=== PATIENT | female | born 1955 | race Caucasian/White ===

== ENCOUNTER 2020-03-25 10:48 | Outpatient (CLI) | payer MEDICARE, BC ==
--- NOTE | 2020-04-22 09:43 | MMO ---
Bilateral MAMMO Bilat Screen [facility]. CLINICAL HISTORY: Patient is 65 years old and is seen for screening. The patient has the following family history of breast cancer: paternal grandmother, malignant (generic). The patient has no personal history of cancer. VIEWS: The views performed were: bilateral craniocaudal with tomosynthesis and bilateral mediolateral oblique with tomosynthesis. This study has been interpreted with the assistance of computer-aided detection. MAMMOGRAM FINDINGS: There are scattered fibroglandular densities. Finding 1: There are benign appearing calcifications seen in both breasts. Finding 2: There are amorphous or indistinct calcifications measuring 10 millimeters with grouped or clustered distribution seen in the upper-outer region of the left breast. IMPRESSION: FINDING 1: BENIGN APPEARING CALCIFICATIONS IN BOTH BREASTS ARE BENIGN. FINDING 2: AMORPHOUS OR INDISTINCT CALCIFICATIONS IN THE LEFT BREAST REQUIRE ADDITIONAL EVALUATION. ADDITIONAL PROJECTIONS (LEFT CRANIOCAUDAL SPOT COMPRESSION MAGNIFICATION; LEFT MEDIOLATERAL OBLIQUE SPOT COMPRESSION MAGNIFICATION; LEFT MEDIOLATERAL; AND LEFT MEDIOLATERAL SPOT COMPRESSION MAGNIFICATION) ARE RECOMMENDED. THE RESULTS OF THIS EXAM WERE SENT TO THE PATIENT. ACR BI-RADS Category 0 - Incomplete: Need additional imaging evaluation. [facility] will notify the patient of the need for additional imaging services. MAMMOGRAPHY NOTE: 1. A negative mammogram report should not delay a biopsy if a dominant of clinically suspicious mass is present. 2. Approximately 10% to 15% of breast cancers are not detected by mammography. 3. Adenosis and dense breasts may obscure an underlying neoplasm. Reported by: AUTUMN KIM MD Electonically Signed: [id number]
== END 2020-03-25 10:49 | disposition home or self-care (01) ==
LOC: BICMAMMO 10:48
PROVIDERS: ATTEND Family Medicine
DX: Z12.31 Encounter for screening mammogram for malignant neoplasm of breast (principal); R92.1 Mammographic calcification found on diagnostic imaging of breast
CPT/HCPCS: 77063; 77067

== ENCOUNTER 2020-06-25 09:06 | Outpatient (CLI) | payer MEDICARE, BC | END 2020-06-25 09:07 | disposition home or self-care (01) | LOC: BICMAMMO 09:06 | PROVIDERS: ATTEND Family Medicine | DX: R92.1 Mammographic calcification found on diagnostic imaging of breast (principal) | CPT/HCPCS: 77065; G0279 ==

== ENCOUNTER → 2020-08-11 | Day surgery (SDC) | payer MEDICARE, BC | LOC: MAMMO 07:04 | PROVIDERS: ATTEND Family Medicine | PROC: 0H9U3ZX Drainage of Left Breast, Percutaneous Approach, Diagnostic (ICD-10-PCS; principal; 2020-08-11) | DX: D05.12 Intraductal carcinoma in situ of left breast (principal); N60.22 Fibroadenosis of left breast | CPT/HCPCS: 19081; 76098; 88305; 88341; 88342 ==

== ENCOUNTER 2020-10-22 06:30 | Day surgery (SDC) | payer MEDICARE, BC ==
[2020-10-20 14:25] VITALS: BMI 29.5
[2020-10-22] MEDS ORDERED: Fentanyl 100 MCG/2 ML VIAL ONE (06:45)
[2020-10-22] MEDS ORDERED: Lidocaine 1% w/Epinephrine 1:100K 30 ML VIAL ONE (06:59)
[2020-10-22] MEDS ORDERED: Isosulfan Blue 50 MG/5 ML VIAL ONE (06:59)
[2020-10-22] MEDS ORDERED: Bupivacaine 0.25% HCL 30 ML VIAL ONE (06:59)
[2020-10-22] MEDS ORDERED: Ketorolac Tromethamine 30 MG/ML VIAL ONE (08:24)
[2020-10-22] MEDS ORDERED: PHENYLEPHRINE-NS 100 MCG/ML 10 ML SYRINGE ONE (08:24)
[2020-10-22] MEDS ORDERED: Dexamethasone 20 MG/5 ML VIAL ONE (08:24)
[2020-10-22] MEDS ORDERED: Lidocaine 1% PF 5 ML VIAL ONE (08:24)
[2020-10-22] MEDS ORDERED: PROPOFOL 200 MG/20 ML VIAL ONE (08:24)
[2020-10-22] MEDS ORDERED: Acetaminophen 500 MG TAB ONE (08:24)
[2020-10-22] MEDS ORDERED: Ondansetron PF 4 MG/2 ML Vial ONE (08:24)
== END 2020-10-22 11:30 | disposition home or self-care (01) ==
LOC: SDC 06:30
PROVIDERS: ATTEND Surgery
PROC: 0HBU0ZZ Excision of Left Breast, Open Approach (ICD-10-PCS; principal; 2020-10-22)
DX: N60.92 Unspecified benign mammary dysplasia of left breast (principal); E11.9 Type 2 diabetes mellitus without complications; I10 Essential (primary) hypertension; E03.9 Hypothyroidism, unspecified; E78.5 Hyperlipidemia, unspecified; Z87.891 Personal history of nicotine dependence; Z80.3 Family history of malignant neoplasm of breast; Z79.84 Long term (current) use of oral hypoglycemic drugs; Z79.899 Other long term (current) drug therapy; Z88.2 Allergy status to sulfonamides
CPT/HCPCS: 19281; 76098; 88307; J0690; J1100; J1885; J2405; J2704; J3010; Q9968; S0020

== ENCOUNTER 2020-12-22 13:58 | Outpatient (CLI) | payer MEDICARE, BC | END 2020-12-22 13:59 | disposition home or self-care (01) | LOC: BICMAMMO 13:58 | PROVIDERS: ATTEND Internal Medicine Hematology & Oncology | DX: Z13.820 Encounter for screening for osteoporosis (principal); C50.412 Malignant neoplasm of upper-outer quadrant of left female breast; T38.6X5A Adverse effect of antigonadotrophins, antiestrogens, antiandrogens, not elsewhere classified, initial encounter; Z78.0 Asymptomatic menopausal state | CPT/HCPCS: 77080 ==

== ENCOUNTER 2021-04-04 10:01 | Outpatient (CLI) | payer MEDICARE, BC | END 2021-04-04 10:02 | disposition home or self-care (01) | LOC: BICMAMMO 10:01 | PROVIDERS: ATTEND Surgery | DX: D05.12 Intraductal carcinoma in situ of left breast (principal) | CPT/HCPCS: 77066; G0279 ==

== ENCOUNTER 2021-08-04 10:08 | Outpatient (CLI) | payer MEDICARE, BC | END 2021-08-04 10:09 | disposition home or self-care (01) | LOC: BICULT 10:08 | PROVIDERS: ATTEND Family Medicine | DX: Z12.2 Encounter for screening for malignant neoplasm of respiratory organs (principal); R10.11 Right upper quadrant pain; R59.0 Localized enlarged lymph nodes; Z87.891 Personal history of nicotine dependence | CPT/HCPCS: 71271; 76705 ==

== ENCOUNTER 2021-10-17 14:02 | Outpatient (CLI) | payer MEDICARE, BC ==
[~2021-10-17 14:02] MED LIST: Iopamidol-370 76% 500 ML 1 ML ONE
== END 2021-10-17 14:03 | disposition home or self-care (01) ==
LOC: BICCT 14:02
PROVIDERS: ATTEND Otolaryngology Plastic Surgery within the Head & Neck
DX: Z08 Encounter for follow-up examination after completed treatment for malignant neoplasm (principal); R59.1 Generalized enlarged lymph nodes; Z85.3 Personal history of malignant neoplasm of breast
CPT/HCPCS: 70491; 71260; 82565; Q9967

== ENCOUNTER 2021-10-27 12:17 | Outpatient (CLI) | payer MEDICARE, BC | END 2021-10-27 12:18 | disposition home or self-care (01) | LOC: LABBT 12:17 | PROVIDERS: ATTEND Internal Medicine Gastroenterology | DX: K21.9 Gastro-esophageal reflux disease without esophagitis (principal); R13.10 Dysphagia, unspecified; Z20.822 Contact with and (suspected) exposure to COVID-19 | CPT/HCPCS: 87811 ==

== ENCOUNTER 2021-11-01 06:23 | Day surgery (SDC) | payer MEDICARE, BC ==
[2021-10-28 14:30] VITALS: BMI 29.7
[2021-11-01] MEDS ORDERED: PROPOFOL 200 MG/20 ML VIAL ONE (08:08)
[2021-11-01] MEDS ORDERED: Lidocaine 1% MPF 2 ML VIAL ONE (08:08)
== END 2021-11-01 09:12 | disposition home or self-care (01) ==
LOC: SDC 06:23
PROVIDERS: ATTEND Internal Medicine Gastroenterology
PROC: 0DB68ZX Excision of Stomach, Via Natural or Artificial Opening Endoscopic, Diagnostic (ICD-10-PCS; principal; 2021-11-01)
PROC: 0D757ZZ Dilation of Esophagus, Via Natural or Artificial Opening (ICD-10-PCS; 2021-11-01)
DX: K29.50 Unspecified chronic gastritis without bleeding (principal); K31.89 Other diseases of stomach and duodenum; R13.10 Dysphagia, unspecified; K21.9 Gastro-esophageal reflux disease without esophagitis; I10 Essential (primary) hypertension; M19.90 Unspecified osteoarthritis, unspecified site; E11.9 Type 2 diabetes mellitus without complications; E78.5 Hyperlipidemia, unspecified; E03.9 Hypothyroidism, unspecified; G47.00 Insomnia, unspecified; Z79.84 Long term (current) use of oral hypoglycemic drugs; Z79.890 Hormone replacement therapy; Z79.899 Other long term (current) drug therapy; Z88.2 Allergy status to sulfonamides
CPT/HCPCS: 88305; 88342; J2704

== ENCOUNTER 2021-11-25 09:25 | Outpatient (CLI) | payer MEDICARE, BC ==
[2021-11-25 11:30] LABS: Hemoglobin 11.6 g/dL (12.0-15.5)
[2021-11-25 12:02] LABS: Anion Gap 18 mmol/L (10-20); BUN (Urea Nitrogen) 17 mg/dL (9.8-20.1); Calc. Creatinine Clearance 0 mL/min (70-130); Calcium 8.7 mg/dL (7.8-10.44); Carbon Dioxide 23 mmol/L (23-31); Chloride 105 mmol/L (98-107); Estimated GFR 77; Glucose 119 mg/dL (80-115); Potassium 4.3 mmol/L (3.5-5.1); Sodium 142 mmol/L (136-145)
== END 2021-11-25 09:26 | disposition home or self-care (01) ==
LOC: LABBT 09:25
PROVIDERS: ATTEND Otolaryngology Plastic Surgery within the Head & Neck
DX: Z01.818 Encounter for other preprocedural examination (principal); Z20.822 Contact with and (suspected) exposure to COVID-19
CPT/HCPCS: 80048; 85014; 85018; 87811; 93005; 93010

== ENCOUNTER 2021-11-30 06:41 | Day surgery (SDC) | payer MEDICARE, BC ==
[2021-11-29 10:26] VITALS: BMI 29.7
[2021-11-30] MEDS ORDERED: fentaNYL Citrate/PF 100 MCG/2 ML SYRINGE ONE (07:16)
[2021-11-30] MEDS ORDERED: EPINEPHrine 1 MG/ML AMP ONE (07:53)
[2021-11-30] MEDS ORDERED: PROPOFOL 40 ML ONE (07:59)
[2021-11-30] MEDS ORDERED: Dexamethasone 20 MG/5 ML VIAL ONE (08:06)
[2021-11-30] MEDS ORDERED: PROPOFOL 200 MG/20 ML VIAL ONE (08:06)
[2021-11-30] MEDS ORDERED: Ondansetron PF 4 MG/2 ML Vial ONE (08:06)
[2021-11-30] MEDS ORDERED: HYDROcodone/Acetaminophen 5/325 mg Tablet ONE (09:47)
== END 2021-11-30 09:40 | disposition home or self-care (01) ==
LOC: SDC 06:41
PROVIDERS: ATTEND Otolaryngology Plastic Surgery within the Head & Neck
PROC: 3E0F8GC Introduction of Other Therapeutic Substance into Respiratory Tract, Via Natural or Artificial Opening Endoscopic (ICD-10-PCS; principal; 2021-11-30)
DX: J38.01 Paralysis of vocal cords and larynx, unilateral (principal); E11.9 Type 2 diabetes mellitus without complications; E03.9 Hypothyroidism, unspecified; E78.5 Hyperlipidemia, unspecified; Z85.3 Personal history of malignant neoplasm of breast; Z87.891 Personal history of nicotine dependence; Z92.3 Personal history of irradiation; Z79.811 Long term (current) use of aromatase inhibitors; Z79.84 Long term (current) use of oral hypoglycemic drugs; Z79.899 Other long term (current) drug therapy; Z88.2 Allergy status to sulfonamides
CPT/HCPCS: 31571; C1776; J0171; J1100; J2405; J2704

== ENCOUNTER 2021-12-12 06:11 | Day surgery (SDC) | payer MEDICARE, BC ==
[2021-12-12] MEDS ORDERED: fentaNYL Citrate/PF 100 MCG/2 ML SYRINGE ONE (06:45)
[2021-12-12] MEDS ORDERED: Phenylephrine 10 MG/ML VIAL ONE (06:45)
[2021-12-12] MEDS ORDERED: Bupivacaine 0.25% HCL 30 ML VIAL ONE (06:50)
[2021-12-12] MEDS ORDERED: EPINEPHrine 1 MG/ML AMP ONE (06:50)
[2021-12-12] MEDS ORDERED: Ondansetron PF 4 MG/2 ML Vial ONE (07:28)
[2021-12-12] MEDS ORDERED: Dexamethasone 20 MG/5 ML VIAL ONE (07:28)
[2021-12-12] MEDS ORDERED: PROPOFOL 200 MG/20 ML VIAL ONE (07:28)
[2021-12-12] MEDS ORDERED: Glycopyrrolate 0.2 MG/ML 5 ML SYRINGE ONE (07:28)
[2021-12-12] MEDS ORDERED: PHENYLEPHRINE-NS 100 MCG/ML 10 ML SYRINGE ONE (07:28)
[2021-12-12] MEDS ORDERED: NEOSTIGMINE 3 MG/3 ML SYR 3 MG/3 ML SYRINGE ONE (07:28)
[2021-12-12] MEDS ORDERED: Rocuronium Bromide 10 MG/ML (10ML VIAL) ONE (07:28)
[2021-12-12] MEDS ORDERED: HYDROcodone/Acetaminophen 5/325 mg Tablet PO PRN (08:34)
[2021-12-12] MEDS ORDERED: SUGAMMADEX SODIUM 200 MG/2 ML VIAL ONE (08:40)
[2021-12-12] MEDS ORDERED: Fentanyl 100 MCG/2 ML VIAL ONE (09:09)
[2021-12-12 11:26] VITALS: BMI 31.3
== END 2021-12-12 13:29 | disposition home or self-care (01) ==
LOC: SDC 06:11
PROVIDERS: ATTEND Thoracic Surgery (Cardiothoracic Vascular Surgery)
PROC: 07B70ZX Excision of Thorax Lymphatic, Open Approach, Diagnostic (ICD-10-PCS; principal; 2021-12-12)
DX: C96.9 Malignant neoplasm of lymphoid, hematopoietic and related tissue, unspecified (principal); E11.9 Type 2 diabetes mellitus without complications; E03.9 Hypothyroidism, unspecified; E78.5 Hyperlipidemia, unspecified; K21.9 Gastro-esophageal reflux disease without esophagitis; F17.290 Nicotine dependence, other tobacco product, uncomplicated; Z85.3 Personal history of malignant neoplasm of breast; Z79.811 Long term (current) use of aromatase inhibitors; Z79.84 Long term (current) use of oral hypoglycemic drugs; Z79.899 Other long term (current) drug therapy; Z88.2 Allergy status to sulfonamides
CPT/HCPCS: 38500; C1776; 88305; 88341; 88342; J0171; J1100; J2370; J2405; J2704; J3010; S0020

== ENCOUNTER 2022-01-05 10:25 | Outpatient (CLI) | payer MEDICARE, BC ==
[2022-01-05 13:16] LABS: #Monocytes 0.4 10x3/uL (0.0-1.1); #Neutrophils 3.6 10x3/uL (1.5-8.4); %Basophils 0.6 % (0.0-2.0); %Eosinophils 0.4 % (0.0-6.0); %Lymphocytes 19.8 % (18.0-47.0); %Monocytes 8.1 % (0.0-10.0); %Neutrophils 70.3 % (40.0-75.0); Hemoglobin 11.2 g/dL (12.0-15.5); Mean Corpuscular HGB CONC 32.4 g/dL (32.0-36.0); Mean Corpuscular Hemoglobin 28.7 pg (27.0-33.0); Mean Corpuscular Volume 88.7 fl (81.6-98.3); Mean Platelet Volume 10.6 fl (7.4-10.4); Platelet Count 197 10x3/uL (150-450); RBC Distribution Width 14.7 % (11.5-14.5); White Blood Cell (WBC) Count 5.2 10x3/uL (3.5-10.5)
[2022-01-05 14:01] LABS: Anion Gap 16 mmol/L (10-20); BUN (Urea Nitrogen) 12 mg/dL (9.8-20.1); Calc. Creatinine Clearance 0 mL/min (70-130); Calcium 8.8 mg/dL (7.8-10.44); Carbon Dioxide 26 mmol/L (23-31); Chloride 105 mmol/L (98-107); Estimated GFR 77; Glucose 101 mg/dL (80-115); Potassium 4.5 mmol/L (3.5-5.1); Sodium 142 mmol/L (136-145)
== END 2022-01-05 10:26 | disposition home or self-care (01) ==
LOC: LABBT 10:25
PROVIDERS: ATTEND Surgery
DX: Z01.818 Encounter for other preprocedural examination (principal); C50.919 Malignant neoplasm of unspecified site of unspecified female breast
CPT/HCPCS: 71046; 80048; 85025; 93005; 93010

== ENCOUNTER 2022-01-10 11:28 | Outpatient (CLI) | payer MEDICARE, BC | END 2022-01-10 11:29 | disposition home or self-care (01) | LOC: SCSMRI 11:28 | PROVIDERS: ATTEND Internal Medicine Hematology & Oncology | DX: C34.02 Malignant neoplasm of left main bronchus (principal); I72.5 Aneurysm of other precerebral arteries | CPT/HCPCS: 70553 ==

== ENCOUNTER 2022-04-10 10:28 | Outpatient (CLI) | payer MEDICARE | END 2022-04-10 10:29 | disposition home or self-care (01) | LOC: BICMAMMO 10:28 | PROVIDERS: ATTEND Specialist | DX: Z08 Encounter for follow-up examination after completed treatment for malignant neoplasm (principal); Z85.3 Personal history of malignant neoplasm of breast | CPT/HCPCS: 77066; G0279 ==

== ENCOUNTER 2022-04-18 12:35 | Outpatient (CLI) | payer MEDICARE | END 2022-04-18 12:36 | disposition home or self-care (01) | LOC: SCSMRI 12:35 | PROVIDERS: ATTEND Internal Medicine Hematology & Oncology | DX: C34.02 Malignant neoplasm of left main bronchus (principal); C50.412 Malignant neoplasm of upper-outer quadrant of left female breast; I67.1 Cerebral aneurysm, nonruptured; E11.9 Type 2 diabetes mellitus without complications; Z96.652 Presence of left artificial knee joint | CPT/HCPCS: 70553; 78815; A9552 ==

== ENCOUNTER 2022-10-06 12:32 | Outpatient (CLI) | payer MEDICARE | END 2022-10-06 12:33 | disposition home or self-care (01) | LOC: PET 12:32 → SCSMRI 12:33 | PROVIDERS: ATTEND Internal Medicine Hematology & Oncology | DX: C34.02 Malignant neoplasm of left main bronchus (principal); C50.412 Malignant neoplasm of upper-outer quadrant of left female breast; I67.1 Cerebral aneurysm, nonruptured | CPT/HCPCS: 70553; 78815; A9552 ==

== ENCOUNTER 2022-11-03 13:13 | Outpatient (CLI) | payer BC, MEDICARE | END 2022-11-03 13:14 | disposition home or self-care (01) | LOC: BICMAMMO 13:13 | PROVIDERS: ATTEND Internal Medicine Hematology & Oncology | DX: Z13.820 Encounter for screening for osteoporosis (principal); C34.02 Malignant neoplasm of left main bronchus; Z78.0 Asymptomatic menopausal state | CPT/HCPCS: 77080 ==

== ENCOUNTER 2022-12-29 08:00 | Outpatient (CLI) | payer MEDICARE | END 2022-12-29 08:01 | LOC: PET 08:00 | PROVIDERS: ATTEND Internal Medicine Hematology & Oncology | DX: C34.02 Malignant neoplasm of left main bronchus (principal); C76.0 Malignant neoplasm of head, face and neck; R94.8 Abnormal results of function studies of other organs and systems | CPT/HCPCS: 78815; A9552 ==

== ENCOUNTER 2023-04-06 10:15 | Outpatient (CLI) | payer MEDICARE | END 2023-04-06 10:16 | disposition home or self-care (01) | LOC: PET 10:15 | PROVIDERS: ATTEND Internal Medicine Hematology & Oncology | DX: C34.02 Malignant neoplasm of left main bronchus (principal); C76.0 Malignant neoplasm of head, face and neck; C50.412 Malignant neoplasm of upper-outer quadrant of left female breast; R59.0 Localized enlarged lymph nodes | CPT/HCPCS: 78815; A9552 ==

== ENCOUNTER 2023-08-01 12:04 | Day surgery (SDC) | payer MEDICARE ==
[2023-08-01] MEDS ORDERED: Acetaminophen 500 MG TAB ONE (12:47)
[2023-08-01] MEDS ORDERED: diphenhydrAMINE 25 MG CAP ONE (12:47)
[2023-08-01] MEDS: Acetaminophen 500 MG TAB PO SCH (12:48)
[2023-08-01] MEDS: diphenhydrAMINE 25 MG CAP PO SCH (12:48)
[2023-08-01 17:31] VITALS: BP 135/72; TEMP 98.5
== END 2023-08-01 17:37 | disposition home or self-care (01) ==
LOC: ONC/OP 12:04
PROVIDERS: ATTEND Internal Medicine Hematology & Oncology
DX: D64.9 Anemia, unspecified (principal); D69.6 Thrombocytopenia, unspecified; Z88.2 Allergy status to sulfonamides
CPT/HCPCS: 36430; 86850; 86900; 86901; 86920; J1642; P9016

== ENCOUNTER 2023-11-13 08:45 | Outpatient (CLI) | payer MEDICARE | END 2023-11-13 08:46 | LOC: PET 08:45 | PROVIDERS: ATTEND Internal Medicine Hematology & Oncology | DX: C34.02 Malignant neoplasm of left main bronchus (principal); C50.412 Malignant neoplasm of upper-outer quadrant of left female breast; R91.8 Other nonspecific abnormal finding of lung field | CPT/HCPCS: 78815; A9552 ==

== ENCOUNTER 2023-12-12 15:47 | Outpatient (CLI) | payer MEDICARE | END 2023-12-12 15:48 | disposition home or self-care (01) | LOC: SCSRAD 15:47 | DX: S99.921A Unspecified injury of right foot, initial encounter (principal); S92.354A Nondisplaced fracture of fifth metatarsal bone, right foot, initial encounter for closed fracture ==